=== PATIENT | male | born 1980 | race Caucasian/White ===

== ENCOUNTER 2018-12-24 17:51 | Emergency (ER) | payer OTHER ==
[~2018-12-24] VITALS: Ht 195.6 cm; Wt 159.2 kg
[~2018-12-24 17:51] MED LIST: ACETAMINOPHEN-1 EAC1 PO; BLOOD PRESSURE; BUSPIRONE HCL10 MG; CLONIDINE0.1 PO; EFFEXOR 5050 MG/1 T1 PO; FLEXERIL PO; HYDROCODON-ACE1 EACH PO; HYDROXYZINE HCL25 M1 PO; IBUPROFEN 800800 M1 PO; IBUPROFEN 800800 MG PO; LEXAPRO20 MG PO; LIORESAL 10 MG10 MG PO; NOHOMEMEDICATIONS; NORCO 5-325 TA1 EAC1 PO; NORCO 5-325 TA1 EACH PO; PENICILLIN V P500 MG PO; PENICILLIN VK250 MG PO; ROBAXIN500 MG PO; SEROQUEL 50 MG50 MG PO; VALIUM5 MG PO
[2018-12-24] MEDS ORDERED: PROAIR HFA8.5 GM INH (19:13)
[2018-12-24] MEDS ORDERED: PREDNISONE50 MG PO (19:13)
[2018-12-24] MEDS ORDERED: ZPAK PO (19:13)
[2018-12-24] MEDS ORDERED: BENZONATATE200 MG PO (19:13)
[2018-12-24 19:25] VITALS: BP 160/91
== END 2018-12-24 19:25 | disposition home or self-care (01) ==
LOC: M.ERS 17:51
DX: J06.9 Acute upper respiratory infection, unspecified (principal); I10 Essential (primary) hypertension; F17.210 Nicotine dependence, cigarettes, uncomplicated; Z90.49 Acquired absence of other specified parts of digestive tract